=== PATIENT | female | born 1990 | race Caucasian/White ===

== ENCOUNTER → 2023-06-17 07:29 | Outpatient (REF) | payer OTHER, SELFPAY | LOC: PNTC 07:29 | PROVIDERS: ATTENDING PHYSICIAN Obstetrics & Gynecology | DX: O99.210 Obesity complicating pregnancy, unspecified trimester (principal) | CPT/HCPCS: 76816 ==

== ENCOUNTER → 2023-07-29 07:33 | Outpatient (REF) | payer OTHER, SELFPAY | LOC: PNTC 07:33 | PROVIDERS: ATTENDING PHYSICIAN Obstetrics & Gynecology | DX: O99.210 Obesity complicating pregnancy, unspecified trimester (principal) | CPT/HCPCS: 76816 ==

== ENCOUNTER 2023-08-14 10:00 | Inpatient (IN) | payer OTHER, SELFPAY ==
[2023-08-14 10:43] LABS: % Basophils 0.3 % (0-2); % Eosinophils 0.4 % (0-6); % Immature Granulocytes 0.6 % (0-0.5); % Lymphocytes 13.4 % (20.5-51.1); % Monocytes 5.1 % (1.7-9.3); % Neutrophils 80.2 % (42.2-75.2); Absolute Eosinophils 0.1 10^3/uL (0-0.7); Absolute Immature Granulocytes 0.1 10^3/uL (0-0.05); Absolute Lymphocytes 1.7 10^3/uL (1.2-3.4); Absolute Monocytes 0.7 10^3/uL (0.1-0.6); Absolute Neutrophils 10.3 10^3/uL (1.4-6.5); Hematocrit 30.9 % (37.0-47.0); Hemoglobin 10.6 g/dL (12.0-16.0); Mean Corp Hgb Conc. 34.3 g/dL (33.0-37.0); Mean Corpuscular Hgb 28.1 pg (27.0-31.0); Mean Platelet Volume 10.2 fL (7.4-10.4); Nucleated Red Blood Cells % 0 %; Platelet Count 340 10^3/uL (130-400); Red Blood Cell Count 3.77 10^6/uL (4.20-5.40); White Blood Cell Count 12.9 10^3/uL (4.8-10.8)
[2023-08-14 10:52] LABS: Urine Albumin Trace (Neg - Trace); Urine Bilirubin Negative (Negative); Urine Character Clear (Clear); Urine Color Yellow; Urine Glucose Negative (Negative); Urine Ketone Negative (Negative); Urine Leukocyte Negative (Negative); Urine Nitrite Negative (Negative); Urine Occult Blood Negative (Negative); Urine Specific Gravity 1.005 (<1.030); Urine Urobilinogen Negative (Neg - 1+)
[2023-08-14 10:53] LABS: ALT (SGPT) 22 U/L (0-35); AST (SGOT) 19 U/L (14-36); Albumin 3.5 g/dl (3.5-5.0); Alkaline Phosphatase 133 U/L (38-126); Blood Urea Nitrogen 7 mg/dl (7-17); Calcium 9.7 mg/dl (8.4-10.2); Carbon Dioxide 19 mmol/L (22-30); Chloride 109 mmol/L (98-107); Glucose 113 mg/dl (70-99); Potassium 3.7 mmol/L (3.5-5.1); Sodium 132 mmol/L (135-145); Total Bilirubin 0.3 mg/dl (0.2-1.3); Total Protein 6.5 g/dl (6.3-8.2); eGFR > 60.00
[2023-08-14 11:22] VITALS: BP 149/96; BMI 38.6
[2023-08-14 11:41] LABS: Protein/creatinine Ratio 1.1; Urine Protein 54 mg/dl
[2023-08-14] MEDS: CELESTONE SOLUSPAN 2 MG IM (12:25)
[2023-08-15] MEDS: CELESTONE SOLUSPAN 2 MG IM (12:30)
[2023-08-15] MEDS: CYTOTEC 25 MICROGRAM VAG (15:32)
[2023-08-15] MEDS: CYTOTEC 50 MICROGRAM PO (20:01)
[2023-08-16] MEDS: CYTOTEC 50 MICROGRAM PO ×2 (00:03→04:05)
[2023-08-16] MEDS: LR 1000 IV ×2 (01:03→13:42)
[2023-08-16] MEDS: MAGNESIUM SULFATE 100 IV (01:03)
[2023-08-16] MEDS: TRANDATE 200 MG PO ×3 (01:14→20:12)
[2023-08-16] MEDS: MAGNESIUM SULFATE 40 GRAM 1000 IV ×2 (01:38→20:12)
[2023-08-16] MEDS: ANCEF 10 IV (08:30)
[2023-08-16] MEDS: PITOCIN 30 UNITS/NSS 500 ML IV (08:30)
[2023-08-16 09:19] LABS: Magnesium 4.5 mg/dl (1.6-2.3)
[2023-08-16] MEDS: ANCEF 5 IV (15:58)
[2023-08-16] MEDS: TYLENOL 1000 MG PO (20:26)
[2023-08-16] MEDS: ZITHROMAX INFUSION 250 IV (20:26)
[2023-08-16] MEDS: BICITRA 30 ML PO (20:26)
[2023-08-16] MEDS: MORPHINE SULFATE 2 MG IV (23:57)
[2023-08-17] MEDS: ANCEF 5 IV ×2 (00:45→07:49)
[2023-08-17] MEDS: APRESOLINE 10 MG IV ×2 (02:03→02:26)
[2023-08-17] MEDS: TRANDATE 20 MG IV (02:54)
[2023-08-17 05:56] LABS: Hematocrit 28.5 % (37.0-47.0); Hemoglobin 9.9 g/dL (12.0-16.0); Mean Corp Hgb Conc. 34.7 g/dL (33.0-37.0); Mean Corpuscular Hgb 28.7 pg (27.0-31.0); Mean Corpuscular Volume 82.6 fL (81.0-99.0); Mean Platelet Volume 10.1 fL (7.4-10.4); Platelet Count 392 10^3/uL (130-400); Red Blood Cell Count 3.45 10^6/uL (4.20-5.40); Red Cell Dist. Width 13.3 % (11.5-14.5); White Blood Cell Count 18.8 10^3/uL (4.8-10.8)
[2023-08-17 06:30] LABS: ALT (SGPT) 39 U/L (0-35); AST (SGOT) 34 U/L (14-36); Alkaline Phosphatase 140 U/L (38-126); Blood Urea Nitrogen 5 mg/dl (7-17); Carbon Dioxide 19 mmol/L (22-30); Chloride 108 mmol/L (98-107); Estimated Creatinine Clearance > 125 ml/min; Glucose 103 mg/dl (70-99); Magnesium 5.6 mg/dl (1.6-2.3); Potassium 3.8 mmol/L (3.5-5.1); Sodium 132 mmol/L (135-145); Total Bilirubin 0.3 mg/dl (0.2-1.3); Total Protein 5.8 g/dl (6.3-8.2); eGFR > 60.00
[2023-08-17] MEDS: PRENATAL PLUS 1 TABLET PO (07:49)
[2023-08-17] MEDS: TRANDATE 200 MG PO ×2 (07:49→19:46)
[2023-08-17] MEDS: MOTRIN 600 MG PO ×3 (07:49→23:36)
--- NOTE | 2023-08-17 08:26 | W.PN.ANS.POP ---
Anesthesia Post Operative
- Anesthesia Post Op Note
Vital Signs Stable-See Nursing Note: Yes
Airway Patent: Yes
Adequate Pain Control: Yes
Change in Mental Status: No
Current Postoperative Nausea & Vomiting: No
Anesthesia Complications: No
General Anesthetic Recall: No
Unplanned Admission: No
Post Op Hydration Adequate: Yes
[2023-08-17] MEDS: LR 1000 IV (12:03)
[2023-08-17] MEDS: TYLENOL 650 MG PO (15:29)
[2023-08-17] MEDS: HYPERRHO S-D 1500 UNIT IM (15:43)
[2023-08-17] MEDS: PERCOCET 5/325 1 TABLET PO (20:32)
[2023-08-18] MEDS: TYLENOL 650 MG PO ×3 (04:40→17:01)
[2023-08-18] MEDS: MOTRIN 600 MG PO ×3 (05:38→20:35)
[2023-08-18] MEDS: PRENATAL PLUS 1 TABLET PO (08:45)
[2023-08-18] MEDS: SENOKOT-S 1 TABLET PO (08:46)
[2023-08-18] MEDS: TRANDATE 200 MG PO (08:46)
[2023-08-18] MEDS: TRANDATE 400 MG PO (20:28)
[2023-08-18] MEDS: PERCOCET 5/325 1 TABLET PO (21:03)
[2023-08-19] MEDS: MOTRIN 600 MG PO ×4 (02:35→21:01)
[2023-08-19] MEDS: TYLENOL 650 MG PO ×3 (08:35→21:01)
[2023-08-19] MEDS: PRENATAL PLUS 1 TABLET PO (08:35)
[2023-08-19] MEDS: TRANDATE 400 MG PO ×3 (08:36→22:00)
[2023-08-19 14:34] LABS: Syphilis/T. pallidum Ab Reflex Negative (Negative)
[2023-08-19] MEDS: LOVENOX 40 MG SC (17:37)
[2023-08-20] MEDS: TYLENOL 650 MG PO ×3 (05:29→20:04)
[2023-08-20] MEDS: MOTRIN 600 MG PO ×3 (05:29→20:03)
[2023-08-20] MEDS: TRANDATE 400 MG PO ×3 (07:41→22:04)
[2023-08-20] MEDS: PRENATAL PLUS 1 TABLET PO (07:42)
--- NOTE | 2023-08-20 08:43 | CON.CAR ---
Addendum entered and electronically signed by Shukri Shaikh MD 08/20/23 10:10:
I saw and examined the patient.
The Retail Merchandising Manager's note was reviewed and I agree with the note.
Comment:
GEN: No distress, awake, Ox3
HEENT: supple, anicteric, mmm
LUNGS: CTA, no wheezes/rales
CV: Reg, S1/S2, no murmur
ABD: soft, BS+, NT/ND
EXT: +1 edema
NEURO: Gross non-focal
SKIN: No rash
Plan:
She presents with preeclampsia and is now status post delivery via . Her blood pressure remains elevated. Agree with continuing labetalol 40 mg p.o. 3 times daily. Will start hydralazine 25 mg p.o. twice daily and follow her blood
pressure. I agree with her monitoring blood pressure at home.
We discussed lifestyle modification including sodium reduction long-term. There is a family history of essential hypertension.
I do suspect though that her need for medication will decrease over the next several months .
Will arrange follow-up in several weeks
Original Note:
Consultation
Consultation Request
Date/Time Consultation Requested: 08/20/23
Date/Time Consultation Performed: 08/20/23
Requesting Provider: Dr. Graff
Performing Provider: Dr. Shaikh
Reason for Consultation: HTN, post-
Medical History
-
History of Present Illness:
Patient came to for pre-eclampsia on 08/14/23 and cardiology has been consulted for HTN post-. Patient says that at her visit 2 weeks ago she was noted to be HTN, but no other concerning symptoms. At her weekly Ob visit this past
she was HTN at 150/90. She was observed in testing and continued to be HTN at 165/101. Patient was then admitted to labor and delivery for extended observation. Patient says she given magnesium and did not improve so the plan was to attempt
induction which was started on Friday into Friday. Patient reports that she did not sufficiently dilate and by Friday night was recommended to have a . Patient was given hydralazine 10 mg IV 08/17/23 at 0203, hydralazine 10 mg IV on
08/17/23 at 0226 and then labetalol 20 mg IV on 08/17/23 at 0254. Patient was then started on labetalol 400 mg BID on 08/16/23 AM. Labetalol increased to 400 mg TID on 08/19/23 afternoon. Patient reports some double vision and blurred vision with
magnesium that was given days ago and resolved with discontinuation of magnesium. Patient also reports LE edema that started last week and is a bit better now. No h/o HTN prior to this.
PMH:
Diverticulitis
Past Medical History
Past Medical History: Other (in HPI)
Past Surgical History: Other (wisdom teeth)
Social History
Tobacco: Non-Smoker
Alcohol: None
Drug: None
Personal:
Living: With Family
Family History
Family History: Cancer and Other (mother with essential HTN, sister with post- SVT, aunt with pre-eclampsia)
Allergies / Home Medications
Allergy/AdvReac Type Severity Reaction Status Date / Time
diphenhydramine HCl Allergy Hives Verified 02/03/23 20:09
[From Benadryl]
minocycline [Minocycline] Allergy Hives Verified 02/03/23 20:09
Penicillins Allergy Unknown Verified 08/16/23 07:54
�Medication �Instructions �Recorded �Confirmed �Type
1 tab PO 1XD Supplement 08/14/23 08/14/23 History
Review of Systems
-
History Source: Patient
All other systems: Negative unless noted
Physical Exam
Vital Signs
Temp Pulse Resp BP
98.0 F 86 18 146/95
08/14/23 11:22 08/20/23 07:41 08/14/23 11:22 08/20/23 07:41
GEN: NAD. AAOx3
HEENT: EOMI, MMM, wearing glasses
LUNGS: CTA B/L, no wheezes or rales
CV: Reg, S1/S2, no murmur
ABD: soft, BS+, NT, ND
EXT: No clubbing, cyanosis or lesions B/L. Trace to +1 non-pitting B/L LE edema
NEURO: Gross non-focal
SKIN: Warm, dry and pink. No rash
Impression / Plan
-
PCP: SCHEDULING CLERK at [facility]
Cardiology: None prior to admission
Impression:
HTN
Pre-eclampsia with severe features
Post-, s/p after failed induction 08/16/23
Plan:
-Patient came to for pre-eclampsia on 08/14/23 and cardiology has been consulted for HTN post-. Patient says that at her visit 2 weeks ago she was noted to be HTN, but no other concerning symptoms. At her weekly Ob visit this past
she was HTN at 150/90. She was observed in testing and continued to be HTN at 165/101. Patient was then admitted to labor and delivery for extended observation. Patient says she given magnesium and did not improve so the plan was to attempt
induction which was started on Friday into Friday. Patient reports that she did not sufficiently dilate and by Friday night was recommended to have a . Patient was given hydralazine 10 mg IV 08/17/23 at 0203, hydralazine 10 mg IV on
08/17/23 at 0226 and then labetalol 20 mg IV on 08/17/23 at 0254. Patient was then started on labetalol 400 mg BID on 08/16/23 AM. Labetalol increased to 400 mg TID on 08/19/23 afternoon. Patient reports some double vision and blurred vision with
magnesium that was given days ago and resolved with discontinuation of magnesium. Patient also reports LE edema that started last week and is a bit better now. No h/o HTN prior to this.
-Single lead tele strip in chart reviewed by me and shows SR without ischemic changes.
-Cont labetalol 400 mg TID
-Recommend adding hydralazine 25 mg BID.
-Patient reports d/c is planned for 08/21/23. Will monitor BP in that time. No reported lightheadedness
-Patient has a BP cuff in the room that she will use at home, it was checked against the hospital cuff and BPs matched. Asked patient to check BP at home 1-2 times a day and keep a log. Patient provided with handout and best way to check BP at home.
-Will arrange for cardiology f/u in 1-2 weeks.
[2023-08-20 08:57] LABS: Hematocrit 27.3 % (37.0-47.0); Hemoglobin 9.3 g/dL (12.0-16.0); Mean Corp Hgb Conc. 34.1 g/dL (33.0-37.0); Mean Corpuscular Hgb 28.4 pg (27.0-31.0); Mean Corpuscular Volume 83.5 fL (81.0-99.0); Mean Platelet Volume 9.5 fL (7.4-10.4); Platelet Count 392 10^3/uL (130-400); Red Blood Cell Count 3.27 10^6/uL (4.20-5.40); Red Cell Dist. Width 13.4 % (11.5-14.5); White Blood Cell Count 10.1 10^3/uL (4.8-10.8)
[2023-08-20 09:27] LABS: ALT (SGPT) 27 U/L (0-35); AST (SGOT) 22 U/L (14-36); Albumin 3.3 g/dl (3.5-5.0); Alkaline Phosphatase 102 U/L (38-126); Blood Urea Nitrogen 13 mg/dl (7-17); Calcium 9.8 mg/dl (8.4-10.2); Carbon Dioxide 21 mmol/L (22-30); Chloride 109 mmol/L (98-107); Estimated Creatinine Clearance > 125 ml/min; Glucose 95 mg/dl (70-99); Potassium 3.9 mmol/L (3.5-5.1); Sodium 138 mmol/L (135-145); Total Bilirubin 0.4 mg/dl (0.2-1.3); Total Protein 6.1 g/dl (6.3-8.2); eGFR > 60.00
[2023-08-20] MEDS: APRESOLINE 25 MG PO ×2 (09:59→20:03)
[2023-08-21 00:15] LABS: Urine Albumin Negative (Neg - Trace); Urine Bilirubin Negative (Negative); Urine Character Clear (Clear); Urine Color Yellow; Urine Glucose Negative (Negative); Urine Ketone Negative (Negative); Urine Leukocyte 1+ (Negative); Urine Nitrite Negative (Negative); Urine Occult Blood 3+ (Negative); Urine Urobilinogen Negative (Neg - 1+); Urine pH 6.5 (5.0-9.0)
[2023-08-21 00:33] LABS: Urine Squamous Cell >30 /LPF (Few); Urine Urothelial Cell >30 /LPF (FEW)
[2023-08-21 00:36] LABS: Urine Bacteria Few (Negative); Urine Red Blood Cell 21-25 /HPF (0-2)
[2023-08-21] MEDS: TRANDATE 400 MG PO (07:38)
[2023-08-21] MEDS: PRENATAL PLUS 1 TABLET PO (07:38)
[2023-08-21] MEDS: APRESOLINE 25 MG PO (07:39)
[2023-08-21] MEDS: MOTRIN 600 MG PO (08:04)
--- NOTE | 2023-08-21 09:38 | W.PN.CARDCBS ---
Addendum entered and electronically signed by Jacqueline Guajardo DO 08/21/23 11:36:
I saw and examined the patient.
The Service Engineer's note was reviewed and I agree with the note.
Comment: Patient seen and examined with cardiac PA. Overall feeling well following delivery of her daughter Mari. No dizziness or lightheadedness. No shortness of breath. No chest pain or pressure. Voiding well and overall
improving edema. Reviewed preeclampsia as well as plan for antihypertensive therapy and follow-up. She does now have a blood pressure cuff which has been brought in and correlated.
General: No acute distress, AAOX3
Neck: Negative JVD
Heart: Regular, positive S1/S2, No murmur
Lungs: CTA b/l, negative wheezes/rales/rhonchi
Abd: Soft mildly distended. . Positive bowel sounds
Ext: trace edema
Neuro: nonfocal
Plan:
33-year-old female status post 08/16/2023 for failed induction of labor with preeclampsia at 37/4 7 weeks to a healthy baby girl named Mari. No preceding medical history. She is not planning on breast-feeding.
-We discussed preeclampsia, blood pressure monitoring, blood pressure treatment, anticipated course.
-Will change labetalol to 400 mg twice daily and continue hydralazine 25 mg twice daily will add nifedipine XL 30 mg daily now.
-Discussed with OB, they will notify us of blood pressures following the addition of nifedipine.
-Outpatient cardiac follow-up arranged
-Home blood pressure monitoring instructions have been provided
-Anticipate discharge home later today if blood pressures are stable
Original Note:
Today's Communication / Plan
-
-Start nifedipine XL 30 mg daily now
-Decrease labetalol to 400 mg BID
-Cont hydralazine 25 mg BID
-Recheck BP and await updated readings, if BP improved following addition of nifedipine then will cont with plan as is, but if BP is not well controlled then will increase hydralazine to 50 mg BID.
Impression / Plan
-
PCP: GRANTS MANAGER at [facility]
Cardiology: None prior to admission
Impression:
HTN
Pre-eclampsia with severe features
Post-, s/p after failed induction 08/16/23
Plan:
-BP remains elevated despite addition of hydralazine starting 08/20/23 AM. Will make the following changes:
-Start nifedipine XL 30 mg daily now
-Decrease labetalol to 400 mg BID
-Cont hydralazine 25 mg BID
-Recheck BP and await updated readings, if BP improved following addition of nifedipine then will cont with plan as is, but if BP is not well controlled then will increase hydralazine to 50 mg BID.
-No lightheadedness. LE edema is improving. No SOB.
-Patient has a BP cuff in the room that she will use at home, it was checked against the hospital cuff and BPs matched. Asked patient to check BP at home 1-2 times a day and keep a log. Patient provided with handout and best way to check BP at home.
-Cardiology f/u arranged for 1-2 weeks.
HPI: Patient came to for pre-eclampsia on 08/14/23 and cardiology has been consulted for HTN post-. Patient says that at her visit 2 weeks ago she was noted to be HTN, but no other concerning symptoms. At her weekly Ob visit this past
she was HTN at 150/90. She was observed in testing and continued to be HTN at 165/101. Patient was then admitted to labor and delivery for extended observation. Patient says she given magnesium and did not improve so the plan was
to attempt induction which was started on Friday into Friday. Patient reports that she did not sufficiently dilate and by Friday night was recommended to have a . Patient was given hydralazine 10 mg IV 08/17/23 at 0203, hydralazine 10 mg
IV on 08/17/23 at 0226 and then labetalol 20 mg IV on 08/17/23 at 0254. Patient was then started on labetalol 400 mg BID on 08/16/23 AM. Labetalol increased to 400 mg TID on 08/19/23 afternoon. Patient reports some double vision and blurred vision with
magnesium that was given days ago and resolved with discontinuation of magnesium. Patient also reports LE edema that started last week and is a bit better now. No h/o HTN prior to this.
Progress Note - Licensed Surveyor
Subjective
Date of Service: August 21, 2023
Feeling well, no lightheadedness or SOB
Objective
Labs:
08/20/23 08:39
08/20/23 08:39
Labs
Hgb 9.3 g/dL (12.0-16.0) L 08/20/23 08:39
Hct 27.3 % (37.0-47.0) L 08/20/23 08:39
Plt Count 392 10^3/uL (130-400) 08/20/23 08:39
Sodium 138 mmol/L (135-145) 08/20/23 08:39
Potassium 3.9 mmol/L (3.5-5.1) 08/20/23 08:39
BUN 13 mg/dl (7-17) 08/20/23 08:39
Creatinine 0.6 mg/dL (0.6-1.0) 08/20/23 08:39
Glucose 95 mg/dl (70-99) 08/20/23 08:39
Vital Signs and I&O:
Vital Signs
Temp Pulse Resp BP
98.0 F 87 18 149/88
08/14/23 11:22 08/21/23 07:39 08/14/23 11:22 08/21/23 07:39
Vital Signs
Temp Pulse Resp BP
98.0 F 87 18 149/88
08/14/23 11:22 08/21/23 07:39 08/14/23 11:08/21/23 07:39
Physical Exam
Physical Exam
GEN: NAD. AAOx3
HEENT: MMM, wearing glasses
LUNGS: No audible wheeze
CV: Reg, S1/S2, no murmur
ABD: ND
EXT: Trace to +1 non-pitting B/L LE edema
NEURO: Gross non-focal
SKIN: Warm, dry and pink. No rash
[2023-08-21] MEDS: PROCARDIA XL (EXTENDED RELEASE) 30 MG PO (11:08)
[2023-08-21] MEDS: MACROBID 100 MG PO (11:56)
--- NOTE | 2023-08-21 14:24 | W.DS.TRANS ---
DC Summary - Tire Tester
-
Discharge Instructions:
Discharge Diagnosis/Procedures Preeclampsia with severe features
Instructions:
Stand-Alone Forms: LDRP Delivery
LDRP Hypertensive Disorders
Changes to Home Medications: No
Discharge Medications:
DC Medications w/original date entered in [employer]
1 tab PO 1XD Supplement 08/14/23
acetaminophen 325 mg tablet 650 mg (2 x 325 mg) PO Q4HPRN PRN mild pain #0 tabs 08/21/23
hydralazine 25 mg tablet 25 mg PO BID #60 tabs 08/21/23
ibuprofen 600 mg tablet 600 mg PO Q6HPRN PRN cramps #45 tabs 08/21/23
labetalol 200 mg tablet 400 mg (2 x 200 mg) PO BID #60 tabs 08/21/23
nifedipine 30 mg tablet,extended release 30 mg PO DAILY #30 tabs 08/21/23
nitrofurantoin monohydrate/macrocrystals 100 mg capsule 100 mg PO BID #9 caps 08/21/23
sennosides 8.6 mg-docusate sodium 50 mg tablet (Stool Softener-Stimulant Laxative) 1 tab PO DAILYPRN PRN constipation #0 tabs 08/21/23
Home Medication Changes
Pending Results: Yes
Additional Pending Results:
Urine Culture
[2023-08-21] MEDS: TYLENOL 650 MG PO (15:10)
== END 2023-08-21 15:49 | disposition home or self-care (01) | DRG 788 ==
LOC: LDRP 10:00
PROVIDERS: Obstetrics & Gynecology; ADMITTING PHYSICIAN Obstetrics & Gynecology
PROC: 3E0P7VZ Introduction of Hormone into Female Reproductive, Via Natural or Artificial Opening (ICD-10-PCS; 2023-08-15)
PROC: 3E033VJ Introduction of Other Hormone into Peripheral Vein, Percutaneous Approach (ICD-10-PCS; 2023-08-16)
PROC: 10D00Z1 Extraction of Products of Conception, Low, Open Approach (ICD-10-PCS; 2023-08-16)
DX: O14.14 Severe pre-eclampsia complicating childbirth (principal); Z37.0 Single live birth; Z3A.36 36 weeks gestation of pregnancy; O61.9 Failed induction of labor, unspecified; O62.2 Other uterine inertia
CPT/HCPCS: 88307; 80053; 81003; 81015; 82570; 83735; 84156; 85025; 85027; 85461; 86780; 86850; 86870; 86900; 86901; 87077; 87086; 93971; J2790

== ENCOUNTER → 2024-12-02 08:11 | Outpatient (REF) | payer OTHER, SELFPAY | LOC: RCS 08:11 | PROVIDERS: ATTENDING PHYSICIAN Internal Medicine Cardiovascular Disease; FAMILY PHYSICIAN Nurse Practitioner Adult Health | DX: I10 Essential (primary) hypertension (principal) | CPT/HCPCS: 93306 ==